=== PATIENT | female | born 1985 | race Caucasian/White ===

== ENCOUNTER 2016-11-24 00:33 | Emergency (ER) | payer OTHER ==
--- NOTE | 2016-11-24 00:58 | C.PDOC ---
History Of Present Illness Patient presents to the ER with a complaint of left flank pain and dysuria. Patient states she saw her COTTON FACTOR yesterday who diagnosed her with a UTI and stated her on cipro, however, pain persists. Denies fever or chills. Time Seen by Provider: 11/24/16 00:58 Chief Complaint (Nursing): Abdominal Pain History Per: Patient History/Exam Limitations: no limitations Onset/Duration Of Symptoms: Days Current Symptoms Are (Timing): Still Present Severity: Moderate Pain Scale Rating Of: 4 Location Of Pain/Discomfort: LLQ Radiation Of Pain To:: None Quality Of Discomfort: Unable To Describe Associated Symptoms: Urinary Symptoms (Dysuria). denies: Fever, Chills Exacerbating Factors: None Alleviating Factors: None Recent travel outside of the [place]: No Abnormal Vaginal Bleeding: No Past Medical History Reviewed: Historical Data, Nursing Documentation, Vital Signs Vital Signs: Last Vital Signs Temp 98.0 F 11/24/16 00:43 Pulse 73 11/24/16 00:43 Resp 18 11/24/16 00:43 BP 120/52 L 11/24/16 00:43 Pulse Ox 100 11/24/16 02:12 - Medical History PMH: Asthma Surgical History: No Surg Hx Family History: States: No Known Family Hx - Social History Hx Alcohol Use: No Hx Substance Use: No Review Of Systems Constitutional: Negative for: Fever, Chills Gastrointestinal: Positive for: Abdominal Pain (Left flank) Genitourinary: Positive for: Dysuria Physical Exam - Physical Exam Appears: Non-toxic Skin: Warm, Dry Oral Mucosa: Moist Chest: Symmetrical, No Tenderness Cardiovascular: Rhythm Regular, No Murmur Respiratory: No Rales, No Rhonchi, No Wheezing Gastrointestinal/Abdominal: Soft, Tenderness (LLQ), No Guarding, No Rebound Neurological/Psych: Oriented x3 ED Course And Treatment - Laboratory Results Result Diagrams: 11/24/16 01:00 11/24/16 01:16 O2 Sat by Pulse Oximetry: 100 (Room air) Pulse Ox Interpretation: Normal Progress Note: IV fluids administered. Urinalysis ordered. Reevaluation Time: 03:13 Reassessment Condition: Improved Disposition Counseled Patient/Family Regarding: Studies Performed, Diagnosis, Need For Followup - Disposition Referrals: [facility] [Outside] Disposition: HOME/ ROUTINE Disposition Time: 00:58 Condition: FAIR Additional Instructions: continue antibiotics Instructions: Abdominal Pain (ED) - Clinical Impression Clinical Impression: Abdominal pain - Scribe Statement The provider has reviewed the documentation as recorded by the Scribe Kristopher Terrell All medical record entries made by the Scribe were at my direction and personally dictated by me. I have reviewed the chart and agree that the record accurately reflects my personal performance of the history, physical exam, medical decision making, and the department course for this patient. I have also personally directed, reviewed, and agree with the discharge instructions and disposition.
[2016-11-24] MEDS ORDERED: Sodium Chloride 0.9% 1,000 ML IV ONE (00:59)
[2016-11-24] MEDS ORDERED: Sodium Chloride 0.9% 1,000 ML ONE (01:09)
[2016-11-24 01:19] LABS: BASO # 0.1 K/uL (0.0-0.2); BASO % 0.8 % (0.0-2.0); EOS # 0.6 K/uL (0.0-0.7); EOS % 7.7 % (0.0-4.0); HEMATOCRIT 38.6 % (34.0-47.0); LYMPH # 1.5 K/uL (1.0-4.3); LYMPH % 19.3 % (20.0-40.0); MEAN CORPUSCULAR HEMOGLOBIN 29.2 pg (27.0-31.0); MEAN PLATELET VOLUME 8.5 fL (7.2-11.7); MONO # 0.6 K/uL (0.0-0.8); RED CELL DISTRIBUTION WIDTH 12.7 % (11.5-14.5)
[2016-11-24 01:22] LABS: RBC URINE < 1 /hpf (0-3); URINE BACTERIA RARE (<OCC); URINE BILIRUBIN NEGATIVE (NEGATIVE); URINE BLOOD NEGATIVE (NEGATIVE); URINE COLOR Straw (YELLOW); URINE GLUCOSE (UA) NORMAL (Normal); URINE KETONE NEGATIVE (NEGATIVE); URINE LEUKOCYTE ESTERASE NEG Leu/uL (Negative); URINE PROTEIN NEGATIVE (NEGATIVE); URINE UROBILINOGEN NORMAL mg/dL (0.2-1.0); WBC URINE 1 /hpf (0-5)
[2016-11-24 01:30] LABS: CHLORIDE 101 mmol/L (98-107); POTASSIUM 4.5 mmol/L (3.6-5.2); SODIUM 137 mmol/L (132-148)
[2016-11-24 01:32] LABS: ALB/GLOB RATIO 1.6 (1.0-2.1); ALKALINE PHOSPHATASE 61 U/L (38-126); AST/SGOT 22 U/L (14-36); BILIRUBIN,TOTAL 0.5 mg/dL (0.2-1.3); CARBON DIOXIDE 26 mmol/L (22-30); GFR AFRICAN-AMERICAN > 60; TOTAL PROTEIN 7.4 g/dL (6.3-8.3)
[2016-11-24 01:33] LABS: ALT/SGPT 22 U/L (9-52); BLOOD UREA NITROGEN 13 mg/dL (7-17); CALCIUM 8.9 mg/dl (8.6-10.4); GLUCOSE,RANDOM 130 mg/dL (65-105)
[2016-11-24 03:23] VITALS: BP 97/64; PULSE 71; RESP 20; TEMP 98; O2SAT 98
== END 2016-11-24 03:23 | disposition home or self-care (01) ==
LOC: C.ER 00:33
DX: R10.32 Left lower quadrant pain (principal)
CPT/HCPCS: 80053; 81001; 83690; 84703; 85025; 96360; 99285; J7040

== ENCOUNTER 2016-12-03 14:52 | Emergency (ER) | payer OTHER ==
[2016-12-03 15:15] VITALS: O2SAT 100
--- NOTE | 2016-12-03 16:17 | C.PDOC ---
History Of Present Illness Patient is a 31 y/o female that presents to the emergency department for evaluation of LLQ abdominal and pelvic pain. Patient was seen here on 11/24/16 for UTI like symptoms, and was discharged home with antibiotics. CT scan of the abdomen & pelvis was advised at the time, but pt states she was unable to stay. Patient states she continued to have constant LLQ pain after being discharged home. As per , pt was seen by OBGYN, had ultrasound done which showed an ovarian cyst. However, pt states pain is persistent, and worse since last night , which prompted ER visit today. Of note, pt was recently started on new control pills. Otherwise, denies any fever, chills, n/v/d, vaginal discharge, or any other associated symptoms at this time. Time Seen by Provider: 12/03/16 16:01 Chief Complaint (Nursing): Abdominal Pain History Per: Patient History/Exam Limitations: no limitations Onset/Duration Of Symptoms: Days Current Symptoms Are (Timing): Still Present Location Of Pain/Discomfort: LLQ Radiation Of Pain To:: None Quality Of Discomfort: "Pain" Associated Symptoms: denies: Fever, Chills, Nausea, Vomiting, Diarrhea, Loss Of Appetite, Back Pain, Chest Pain, Constipation, Urinary Symptoms Exacerbating Factors: None Alleviating Factors: None Recent travel outside of the [place]: No Additional History Per: Patient Abnormal Vaginal Bleeding: No Past Medical History Reviewed: Historical Data, Nursing Documentation, Vital Signs Vital Signs: Last Vital Signs Temp 97.6 F 12/03/16 15:14 Pulse 76 12/03/16 15:14 Resp 18 12/03/16 15:14 BP 90/58 L 12/03/16 15:14 Pulse Ox 100 12/03/16 16:31 - Medical History PMH: Asthma Family History: States: No Known Family Hx - Social History Hx Alcohol Use: No Hx Substance Use: No Review Of Systems Except As Marked, All Systems Reviewed And Found Negative. Constitutional: Negative for: Fever, Chills Cardiovascular: Negative for: Chest Pain, Palpitations Respiratory: Negative for: Shortness of Breath Gastrointestinal: Positive for: Abdominal Pain. Negative for: Nausea, Vomiting , Diarrhea, Constipation Genitourinary: Positive for: Pelvic Pain. Negative for: Dysuria, Frequency, Incontinence, Hematuria, Vaginal Discharge, Vaginal Bleeding Musculoskeletal: Negative for: Back Pain Physical Exam - Physical Exam Appears: Non-toxic, No Acute Distress Skin: Normal Color, Warm, Dry Head: Atraumatic, Normacephalic Eye(s): bilateral: Normal Inspection, EOMI Neck: Normal ROM, Supple Chest: Symmetrical, No Tenderness Cardiovascular: Rhythm Regular, No Murmur Respiratory: Normal Breath Sounds, No Rales, No Rhonchi, No Wheezing Gastrointestinal/Abdominal: Soft, Tenderness (mild LLQ and pelvic), No Distention, No Guarding, No Rebound Back: Normal Inspection, No CVA Tenderness, No Vertebral Tenderness, No Paraspinal Tenderness Extremity: Normal ROM Neurological/Psych: Oriented x3, Normal Speech, Normal Cognition ED Course And Treatment - Laboratory Results Result Diagrams: 12/03/16 16:19 12/03/16 16:19 Lab Interpretation: Normal O2 Sat by Pulse Oximetry: 100 (on RA) Pulse Ox Interpretation: Normal - CT Scan/US Pelvic ultrasound Other Rad Studies (CT/US): Read By Radiologist, Radiology Report Reviewed CT/US Interpretation: Accession No. : [id number]. Patient Name / ID : EDWINA SLADE / [id number]. Exam Date : 12/03/2016 16:37:15 ( Approved ). Study Comment : Sex / Age : F / 31Y. Creator : Hebert Castillo MD. Dictator : Hebert Castillo MD. Technical Analyst : Linotype Machinist : Hebert Castillo MD. Approver2 : Report Date : 12/03/2016 17:19:11. My Comment : . PROCEDURE: Pelvic ultrasound 12/03/2016. HISTORY: abd pain. COMPARISON: No prior study available for comparison. TECHNIQUE: Transabdominal/transvaginal sonographic evaluation of the pelvis performed. FINDINGS: The uterus is anteverted measuring approximately 7.2 x 3.7 x 3.7 cm. There is a fundal fibroid that measures approximately 2.1 x 1.7 x 2.4 cm endometrial stripe measures 3.9 mm. Small amount of free fluid is present in the cul de sac. The right ovary measures approximately 2.9 x 1.7 x 3.6 cm and exhibits arterial flow. Multiple follicular cyst. There is a small cyst measuring approximately g 1.2 x 0.89 x 0.84 cm with an internal echogenic septation. Left ovary measures approximately 4.3 x 2.0 x 3.3 cm. . Left ovary exhibits arterial flow. Multiple small follicular cysts are present. IMPRESSION: Small fundal fibroid. Small right ovarian cyst with internal an echogenic septation. . Followup ultrasound 6 weeks recommended to assess for resolution. Small amount of free fluid present. Progress Note: Labs, pelvis ultrasound ordered and reviewed. Patient was given Tylenol in the ER. Reevaluation Time: 18:02 Reassessment Condition: Improved Disposition Counseled Patient/Family Regarding: Studies Performed, Diagnosis, Need For Followup, Rx Given - Disposition Disposition: HOME/ ROUTINE Disposition Time: 18:06 Condition: IMPROVED Additional Instructions: follow up with your plier worker this week. Arrange for a followup ultrasound in the next 6 weeks. Prescriptions: Naproxen [Naprosyn] 1 tab PO BID PRN #25 tab PRN Reason: Pain Instructions: Ovarian Cyst (ED) - Clinical Impression Clinical Impression: Ovarian cyst - Scribe Statement The provider has reviewed the documentation as recorded by the Su Quiñones Provider Attestation: All medical record entries made by the Su were at my direction and personally dictated by me. I have reviewed the chart and agree that the record accurately reflects my personal performance of the history, physical exam, medical decision making, and the department course for this patient. I have also personally directed, reviewed, and agree with the discharge instructions and disposition.
[2016-12-03 16:23] LABS: BASO # 0.1 K/uL (0.0-0.2); BASO % 0.8 % (0.0-2.0); EOS # 0.5 K/uL (0.0-0.7); EOS % 6.3 % (0.0-4.0); HEMATOCRIT 38.4 % (34.0-47.0); LYMPH # 1.7 K/uL (1.0-4.3); LYMPH % 21.8 % (20.0-40.0); MEAN CELL VOLUME 86.3 fL (81.0-99.0); MEAN CORPUSCULAR HEMOGLOBIN 29.3 pg (27.0-31.0); MEAN CORPUSCULAR HGB CONC 33.9 g/dL (33.0-37.0); MEAN PLATELET VOLUME 8.8 fL (7.2-11.7); MONO # 0.6 K/uL (0.0-0.8); MONO % 7.3 % (0.0-10.0); RED CELL DISTRIBUTION WIDTH 12.5 % (11.5-14.5); WHITE BLOOD COUNT 7.6 K/uL (4.8-10.8)
[2016-12-03 16:31] LABS: CHLORIDE 100 mmol/L (98-107); SODIUM 138 mmol/L (132-148)
[2016-12-03 16:33] LABS: BILIRUBIN,TOTAL 0.6 mg/dL (0.2-1.3); GFR AFRICAN-AMERICAN > 60
[2016-12-03 16:34] LABS: ALB/GLOB RATIO 1.4 (1.0-2.1); ALKALINE PHOSPHATASE 65 U/L (38-126); ALT/SGPT 17 U/L (9-52); AST/SGOT 25 U/L (14-36); BLOOD UREA NITROGEN 13 mg/dL (7-17); CARBON DIOXIDE 27 mmol/L (22-30); GLUCOSE,RANDOM 89 mg/dL (65-105); TOTAL PROTEIN 7.4 g/dL (6.3-8.3)
[2016-12-03 16:35] LABS: CALCIUM 8.2 mg/dl (8.6-10.4)
[2016-12-03 17:20] LABS: URINE BILIRUBIN NEGATIVE (NEGATIVE); URINE BLOOD NEGATIVE (NEGATIVE); URINE COLOR Straw (YELLOW); URINE GLUCOSE (UA) NORMAL (Normal); URINE KETONE NEGATIVE (NEGATIVE); URINE LEUKOCYTE ESTERASE NEG Leu/uL (Negative); URINE PROTEIN NEGATIVE (NEGATIVE); URINE UROBILINOGEN NORMAL mg/dL (0.2-1.0); WBC URINE < 1 /hpf (0-5)
--- NOTE | 2016-12-03 17:21 | US ---
PROCEDURE: Pelvic ultrasound 12/03/2016 HISTORY: abd pain COMPARISON: No prior study available for comparison TECHNIQUE: Transabdominal/transvaginal sonographic evaluation of the pelvis performed. FINDINGS: The uterus is anteverted measuring approximately 7.2 x 3.7 x 3.7 cm. There is a fundal fibroid that measures approximately 2.1 x 1.7 x 2.4 cm endometrial stripe measures 3.9 mm. Small amount of free fluid is present in the cul de sac. The right ovary measures approximately 2.9 x 1.7 x 3.6 cm and exhibits arterial flow. Multiple follicular cyst. There is a small cyst measuring approximately g 1.2 x 0.89 x 0.84 cm with an internal echogenic septation Left ovary measures approximately 4.3 x 2.0 x 3.3 cm. . Left ovary exhibits arterial flow. Multiple small follicular cysts are present. IMPRESSION: Small fundal fibroid. Small right ovarian cyst with internal an echogenic septation. . Followup ultrasound 6 weeks recommended to assess for resolution Small amount of free fluid present.
[2016-12-03 19:14] VITALS: BP 97/65; PULSE 66; RESP 16; TEMP 98.5
== END 2016-12-03 18:39 | disposition home or self-care (01) ==
LOC: C.ER 14:52
DX: N83.201 Unspecified ovarian cyst, right side (principal)